=== PATIENT | female | born 1950 | race Caucasian/White ===

== ENCOUNTER → 2018-04-19 08:44 | Outpatient (CLI) | payer OTHER, MEDICARE, SELFPAY ==
[2018-04-19 10:54] LABS: Anion Gap 6 (5-15); BUN 29 mg/dL (7-18); BUN/Creat Ratio 32.4 RATIO (10-20); Calcium,Total 8.4 mg/dL (8.5-10.1); Chloride 110 mmol/L (98-107); Cholesterol 198 mg/dL (200); EST Glomerular Filtration Rate 67 mL/min (>60); Est Glom Filt Rate - Afr Amer 81 mL/min (>60); Glucose 126 mg/dL (74-106); High Density Lipoprotein 67 mg/dL; Potassium 4.3 mmol/L (3.5-5.1); Sodium Level 141 mmol/L (136-145); Thyroid Stim Hormone (TSH) 1.23 uIU/mL (0.358-3.74); Triglycerides 92 mg/dL; Very Low Density Lipoprotein 18 mg/dL (5-40)
== END ==
PROVIDERS: Family Provider Family Medicine; PCP Family Medicine; Visit Provider Family Medicine
DX: I10 Essential (primary) hypertension (principal); R73.03 Prediabetes; E03.9 Hypothyroidism, unspecified; E78.5 Hyperlipidemia, unspecified
CPT/HCPCS: 36415; 80048; 80061; 83036; 84443

== ENCOUNTER → 2018-09-09 12:52 | Outpatient (CLI) | payer OTHER, MEDICARE, SELFPAY ==
--- NOTE | 2018-09-09 12:58 | BI_ITS ---
MAMMOGRAPHY - BILATERAL SCREENING REASON FOR EXAM: Female, 68 years old. Routine annual screening examination. PERTINENT HISTORY: Aunt with breast cancer. TECHNIQUE: Digital bilateral breast nyasia (3D mammographic acquisition) in the CC and MLO projections. 2-D mediolateral oblique (MLO) and craniocaudad (CC) views of both breasts were obtained. CAD: Full Field Digital Mammography with Computer Added Detection was performed. COMPARISON: Comparison is made with prior study dated July 30, 2017 and April 27, 2016. FINDINGS: Breast Composition: There are scattered areas of fibroglandular density. There are no dominant masses or suspicious calcifications. There is a 5.6 mm x 6.1 mm well-defined nodule in the upper slightly lateral aspect of the left breast. Correlation with ultrasound is recommended for further evaluation. No other significant abnormalities are identified. BI/SCREENING MAMM (CAD), BILAT IMPRESSION: 5.6 mm x 6.1 mm well-defined nodule in the upper slightly lateral portion of the left breast. Correlation with ultrasound is recommended. ASSESSMENT CATEGORY: BIRADS Category 0: Incomplete. Need additional imaging evaluation. A letter regarding these results will be sent to the patient by the facility within 30 days. Approximately 10% of breast cancers are not detected by mammography. A normal mammogram should not delay biopsy of a clinically suspicious abnormality. [id number] Electronically Signed: Troy Serrano MD at 12:03 EDT Tel [phone], Service support ,
== END ==
PROVIDERS: Family Provider Family Medicine; PCP Family Medicine; Visit Provider Family Medicine
DX: Z12.31 Encounter for screening mammogram for malignant neoplasm of breast (principal)
CPT/HCPCS: 77063; 77067

== ENCOUNTER → 2018-09-11 14:58 | Outpatient (CLI) | payer OTHER, MEDICARE, SELFPAY ==
--- NOTE | 2018-09-11 15:00 | US_ITS ---
STUDY: ULTRASOUND BREAST - LEFT REASON FOR EXAM: Female, 68 years old. Abnormal screening mammogram. TECHNIQUE: Axial and longitudinal images of the LEFT breast were performed with a high resolution ultrasound transducer. COMPARISON: Comparison is made with prior mammogram dated September 09, 2018. FINDINGS: LEFT Breast: There is a 6 mm x 5 mm x 5 mm cyst at the 2:00 position breast at this time some nipple. Adjacent to this at the 2:00 position breast at 3 some is some nipple, there is a 4 mm x 4 mm x 3 mm cyst. US/Breast Limited Unilateral IMPRESSION: 2 small cysts are seen at the 2:00 position of the breast at 2 and 3 cm from the nipple. Routine mammographic follow-up is recommended. ASSESSMENT CATEGORY: BIRADS Category 2: Benign. A letter regarding these results will be sent to the patient by the facility within 30 days. Electronically Signed: Troy Serrano MD at 15:45 EDT Tel [phone], Service support ,
== END ==
PROVIDERS: Family Provider Family Medicine; PCP Family Medicine; Visit Provider Family Medicine
DX: R92.8 Other abnormal and inconclusive findings on diagnostic imaging of breast (principal)
CPT/HCPCS: 76642

== ENCOUNTER → 2018-12-05 14:49 | Outpatient (CLI) | payer OTHER, MEDICARE, SELFPAY ==
[2017-09-11 13:46] VITALS: BMI 31.4
[2018-12-05 16:02] LABS: Hemoglobin A1c 6.3 % (4.2-6.3)
[2018-12-05 16:05] LABS: Anion Gap 6 (5-15); BUN 18 mg/dL (7-18); Calcium,Total 8.8 mg/dL (8.5-10.1); Chloride 108 mmol/L (98-107); Cholesterol 279 mg/dL (200); Creatinine, Serum 0.95 mg/dL (0.55-1.02); EST Glomerular Filtration Rate 63 mL/min (>60); Est Glom Filt Rate - Afr Amer 76 mL/min (>60); Glucose 109 mg/dL (74-106); High Density Lipoprotein 75 mg/dL; Potassium 4.3 mmol/L (3.5-5.1); Sodium Level 143 mmol/L (136-145); Triglycerides 179 mg/dL; Very Low Density Lipoprotein 36 mg/dL (5-40)
[2018-12-09 12:10] LABS: Thyroid Stim Hormone (TSH) 2.32 uIU/mL (0.358-3.74)
[2018-12-09 12:13] LABS: Vitamin D,25 Hydroxy 20.2 ng/mL (29.95-100.01)
--- OUTSIDE RECORDS SUMMARY | 2019-02-09 10:10 | XMS RPT_ITS ---
:1950 Author Organization OHIP Care Team Providers Name Role Phone Subhash Rocha Attending Unavailable Subhash Rocha Primary Care Unavailable Subhash Rocha Attending Unavailable Subhash Rocha Primary Care Unavailable Subhash Rocha Attending Unavailable Subhash Rocha Primary Care Unavailable Subhash Rocha Attending Unavailable Subhash Rocha Primary Care Unavailable Daniel Calzada Attending Unavailable Daniel Calzada Attending Unavailable No Family Physician given Primary Care Unavailable Daniel Calzada Attending Unavailable Daniel Calzada Attending Unavailable No Family Physician given Primary Care Unavailable Daniel Calzada Attending Unavailable No Family Physician given Primary Care Unavailable PROBLEMS PROBLEMS DATE TYPE CONDITION / ATTENDING STATUS SOURCE CODE 02/13/2018 Admitting Unknown / Daniel Calzada Active [facility] Medical diagnosis UNK(Unknown) L [facility] Repository PROCEDURES PROCEDURES No Procedure Records FoundRESULTS RESULTS HEMOGLOBIN A1C Collected: 12/05/2018 Status: F Source: EDIS 2:53 PM [facility] REPOSITORY Order Comment: Order Date: 07/29/18 Order Info: 4548-4 - A1C TYPE CODE TESTS RESULT OUT OF RANGE REFERENCE UNITS LAB L501.9985 4.2-6.3 % Normal HGB A1C 6.3 Performed By: #### L501.9985, L500.2500, L500.4100 #### Edis [facility] [place], [address] BASIC METABOLIC Collected: 12/05/2018 Status: F Source: EDIS PROFILE (BMP) 2:53 PM [facility] REPOSITORY Order Comment: Order Date: 07/29/18 Order Info: 0667-1 - BMP Order Info: 57034-3 - LIPID ADD ON TSH TYPE CODE TESTS RESULT OUT OF RANGE REFERENCE UNITS LAB L501.0100 74-106 mg/dL High GLU 109 Result Comment: Fasting Glucose result from 100 to 125 mg/dL suggests IMPAIRED HOMEOSTASIS per A.D.A. criteria. Please note revised GLUCOSE reference range effective 2017. LAB L501.1000 7-18 mg/dL Normal BUN 18 LAB L501.1100 0.55-1.02 mg/dL Normal CREAT,SERUM 0.95 Result Comment: The validity of the calculated GFR AND GFRAA in patients over 70 years has not been determined. Clinical correlation is essential. LAB L501.1110 >60 mL/min Normal EST GFR 63 Result Comment: Non- GFR Calc LAB L501.1115 >60 mL/min Normal EST GFR - AA 76 Result Comment: GFR Calc LAB L501.1300 10-20 RATIO Normal BUN/CRE 19.0 LAB L501.2200 8.5-10.1 mg/dL CA Normal 8.8 LAB L501.5300 136-145 mmol/L NA Normal 143 LAB L501.5600 3.5-5.1 mmol/L K Normal 4.3 LAB L501.5900 98-107 mmol/L High CL 108 LAB L501.6100 21.0-32.0 mmol/L Normal CO2 29.0 LAB L501.6200 5-15 Normal GAP 6 Performed By: #### L501.9985, L500.2500, L500.4100 #### [facility] [address] [place], [address] LIPID PROFILE Collected: 12/05/2018 Status: F Source: EDIS 2:53 PM [facility] REPOSITORY Order Comment: Order Date: 07/29/18 Order Info: 0667-1 - BMP Order Info: 10814-2 - LIPID ADD ON TSH TYPE CODE TESTS RESULT OUT OF RANGE REFERENCE UNITS LAB L501.4900 200 mg/dL High CHOL 279 Result Comment: <200 mg/dL Desirable 200-240 mg/dL Borderline >240 mg/dL High Risk LAB L501.5000 mg/dL Normal TRIG 179 Result Comment: The drugs N-Acetylcysteine and Metamizole may falsely depress this assay. Serum Triglycerides Reference Interval Normal <150 mg/dL Borderline high 150 - 199 mg/dL High 200 - 499 mg/dL Very High > or = 500 mg/dL LAB L501.6400 mg/dL Normal HDL 75 Result Comment: The drugs N-Acetylcysteine and Metamizole may falsely depress this assay. Reference Range HDL <40 mg/dL Low HDL Cholesterol HDL >or= 60 mg/dL High HDL Cholesterol LAB L501.6500 0-130 mg/dL High LDL 168 LAB L501.6600 5-40 mg/dL Normal VLDL 36 Performed By: #### L501.9985, L500.2500, L500.4100 #### [facility] [address] [place], [address] THYROID STIM HORMONE Collected: 12/05/2018 Status: F Source: EDIS (TSH) 2:53 PM [facility] REPOSITORY Order Comment: Order Date: 07/29/18 Order Info: 0667-1 - BMP Order Info: 09466-1 - LIPID ADD ON TSH TYPE CODE TESTS RESULT OUT OF RANGE REFERENCE UNITS LAB L501.9520 0.358-3.74 uIU/mL Normal TSH 2.32 Performed By: #### L501.9520 #### [facility] [address] [place], [address] VITAMIN D,25 HYDROXY Collected: 12/05/2018 Status: F Source: EDIS 2:53 PM [facility] REPOSITORY Order Comment: ADD ON TYPE CODE TESTS RESULT OUT OF REFERENCE UNITS RANGE LAB L506.1000 29.95-100.01 ng/mL Low Vitamin D 20.2 25-OH Result Comment: Vitamin D 25(OH) Status Range Deficiency <20 ng/mL (50nmol/L) Insuffciency 20 - 30 ng/mL (50 - 75 nmol/L) Sufficiency 30 - 100 ng/mL (75 - 250 nmol/L) Toxicity >100 ng/mL (>250 nmol/L) Performed By: #### L506.1000 #### [facility] [address] [place], [address] BREAST LIMITED Observed: 09/11/2018 Status: F Source: [place] UNILATERAL 3:00 PM [facility] REPOSITORY [facility] Services [address] [place] [address] Breast Limited Unilateral MR#: [id number] Acct: [id number] Name: KARIN CAN Rep #: [id number] : 1950 F 68 From: Troy Serrano MD PCP: Subhash Rocha MD Status: REG CLI Study: Breast Limited Unilateral Date of Exam: 09/11/18 Exam# [id number] Ordering Dr: Subhash Rocha MD STUDY: ULTRASOUND BREAST - LEFT REASON FOR EXAM: Female, 68 years old. Abnormal screening mammogram. TECHNIQUE: Axial and longitudinal images of the LEFT breast were performed with a high resolution ultrasound transducer. COMPARISON: Comparison is made with prior mammogram dated September 09, 2018. FINDINGS: LEFT Breast: There is a 6 mm x 5 mm x 5 mm cyst at the 2:00 position breast at this time some nipple. Adjacent to this at the 2:00 position breast at 3 some is some nipple, there is a 4 mm x 4 mm x 3 mm cyst. US/Breast Limited Unilateral IMPRESSION: 2 small cysts are seen at the 2:00 position of the breast at 2 and 3 cm from the nipple. Routine mammographic follow-up is recommended. ASSESSMENT CATEGORY: BIRADS Category 2: Benign. A letter regarding these results will be sent to the patient by the facility within 30 days. Electronically Signed: Troy Serrano MD at 15:45 EDT Tel [phone], Service support , CC: Subhash Rocha MD Deputy Brand Inspector: Signed SCREENING MAMM (CAD), Observed: 09/09/2018 Status: F Source: [place] BILAT 12:58 PM [facility] REPOSITORY [facility] Imaging Services [address] [place] [address] SCREENING MAMM (CAD), BILAT MR#: [id number] Acct: [id number] Name: KARIN CAN Rep #: [id number] : 1950 F 68 From: Troy Serrano MD PCP: Subhash Rocha MD Status: REG CLI Study: SCREENING MAMM (CAD), BILAT Date of Exam: 09/09/18 Exam# [id number] Ordering Dr: Subhash Rocha MD MAMMOGRAPHY - BILATERAL SCREENING REASON FOR EXAM: Female, 68 years old. Routine annual screening examination. PERTINENT HISTORY: Aunt with breast cancer. TECHNIQUE: Digital bilateral breast nyasia (3D mammographic acquisition) in the CC and MLO projections. 2-D mediolateral oblique (MLO) and craniocaudad (CC) views of both breasts were obtained. CAD: Full Field Digital Mammography with Computer Added Detection was performed. COMPARISON: Comparison is made with prior study dated July 30, 2017 and April 27, 2016. FINDINGS: Breast Composition: There are scattered areas of fibroglandular density. There are no dominant masses or suspicious calcifications. There is a 5.6 mm x 6.1 mm well-defined nodule in the upper slightly lateral aspect of the left breast. Correlation with ultrasound is recommended for further evaluation. No other significant abnormalities are identified. BI/SCREENING MAMM (CAD), BILAT IMPRESSION: 5.6 mm x 6.1 mm well-defined nodule in the upper slightly lateral portion of the left breast. Correlation with ultrasound is recommended. ASSESSMENT CATEGORY: BIRADS Category 0: Incomplete. Need additional imaging evaluation. A letter regarding these results will be sent to the patient by the facility within 30 days. Approximately 10% of breast cancers are not detected by mammography. A normal mammogram should not delay biopsy of a clinically suspicious abnormality. [id number] Electronically Signed: Troy Serrano MD at 12:03 EDT Tel [phone], Service support , CC: Subhash Rocha MD Deputy Brand Inspector: Signed BASIC METABOLIC Collected: 04/19/2018 Status: F Source: EDIS PROFILE (BMP) 8:50 AM [facility] REPOSITORY Order Comment: Order Date: 12/24/17 Order Info: 0667-1 - BMP Order Info: 60860-6 - LIPID Order Info: 3016-3 - TSH TYPE CODE TESTS RESULT OUT OF RANGE REFERENCE UNITS LAB L501.0100 74-106 mg/dL High GLU 126 Result Comment: Fasting Glucose result greater than or equal to 126 mg/dL suggests DIABETES MELLITUS per A.D.A. criteria. Please note revised GLUCOSE reference range effective 2017. LAB L501.1000 7-18 mg/dL High BUN 29 LAB L501.1100 0.55-1.02 mg/dL Normal CREAT,SERUM 0.90 Result Comment: The validity of the calculated GFR AND GFRAA in patients over 70 years has not been determined. Clinical correlation is essential. LAB L501.1110 >60 mL/min Normal EST GFR 67 Result Comment: Non- GFR Calc LAB L501.1115 >60 mL/min Normal EST GFR - AA 81 Result Comment: GFR Calc LAB L501.1300 10-20 RATIO High BUN/CRE 32.4 LAB L501.2200 8.5-10.1 mg/dL Low CA 8.4 LAB L501.5300 136-145 mmol/L NA Normal 141 LAB L501.5600 3.5-5.1 mmol/L K Normal 4.3 LAB L501.5900 98-107 mmol/L High CL 110 LAB L501.6100 21.0-32.0 mmol/L Normal CO2 25.0 LAB L501.6200 5-15 Normal GAP 6 Performed By: #### L500.2500, L500.4100, L501.9520, L501.9985 #### [facility] [address] [place], [place], [address] LIPID PROFILE Collected: 04/19/2018 Status: F Source: EDIS 8:50 AM [facility] REPOSITORY Order Comment: Order Date: 12/24/17 Order Info: 0667-1 - BMP Order Info: 35920-5 - LIPID Order Info: 3016-3 - TSH TYPE CODE TESTS RESULT OUT OF RANGE REFERENCE UNITS LAB L501.4900 200 mg/dL Normal CHOL 198 Result Comment: <200 mg/dL Desirable 200-240 mg/dL Borderline >240 mg/dL High Risk LAB L501.5000 mg/dL Normal TRIG 92 Result Comment: The drugs N-Acetylcysteine and Metamizole may falsely depress this assay. Serum Triglycerides Reference Interval Normal <150 mg/dL Borderline high 150 - 199 mg/dL High 200 - 499 mg/dL Very High > or = 500 mg/dL LAB L501.6400 mg/dL Normal HDL 67 Result Comment: The drugs N-Acetylcysteine and Metamizole may falsely depress this assay. Reference Range HDL <40 mg/dL Low HDL Cholesterol HDL >or= 60 mg/dL High HDL Cholesterol LAB L501.6500 0-130 mg/dL Normal LDL 113 LAB L501.6600 5-40 mg/dL Normal VLDL 18 Performed By: #### L500.2500, L500.4100, L501.9520, L501.9985 #### [facility] [address] [place], [place], [address] THYROID STIM HORMONE Collected: 04/19/2018 Status: F Source: EDIS (TSH) 8:50 AM [facility] REPOSITORY Order Comment: Order Date: 12/24/17 Order Info: 0667-1 - BMP Order Info: 07345-4 - LIPID Order Info: 3016-3 - TSH TYPE CODE TESTS RESULT OUT OF RANGE REFERENCE UNITS LAB L501.9520 0.358-3.74 uIU/mL Normal TSH 1.23 Performed By: #### L500.2500, L500.4100, L501.9520, L501.9985 #### [facility] [address] [place], [address] HEMOGLOBIN A1C Collected: 04/19/2018 Status: F Source: EDIS 8:50 AM [facility] REPOSITORY Order Comment: Order Date: 12/24/17 Order Info: 4548-4 - A1C TYPE CODE TESTS RESULT OUT OF RANGE REFERENCE UNITS LAB L501.9985 4.2-6.3 % Normal HGB A1C 6.0 Performed By: #### L500.2500, L500.4100, L501.9520, L501.9985 #### [facility] [address] [place], [address] ALLERGIES ALLERGIES DATE TYPE / CODE NAME / CODE REACTION SEVERITY SOURCE 09/11/2017 Drug No Known Unknown [facility] Allergy/4160 Allergies/F00 [facility] 34988(SNOMED [id number](RXNOR Repository CT) M) ENCOUNTERS ENCOUNTERS ADMIT/DISCHARGE ACCOUNT ADMITTING ENCOUNTER LOCATION SOURCE NUMBER CLASS 12/12/[id number] [facility] 0 [facility] [place] g:H.PM Repository 12/05/2018 [id number] Ambulatory [place] 3 [facility] ing:MFPLAB Repository 10/16/[id number] [place] g:H.PM Repository 09/11/2018 [id number] Ambulatory [place] 8 [facility] ing:OPUS Repository 09/09/2018 [id number] [facility] ing:OPBI Repository 08/16/[id number] [facility] [place] g:H.PM Repository 05/16/2018 [id number] Ambulatory [facility] [place] g:H.PM Repository 04/19/2018 [id number] Ambulatory [place] 9 [facility] ing:MFPLAB Repository 02/13/2018 [id number] Ambulatory [facility] 0 [facility] g:H.PM Repository PAYERS PAYERS ENCOUNTER GUARANTOR PAYER SUBSCRIBER SOURCE 12/12/2018 LYLE Primary KARIN PETTORINIUNK [facility] Medical [id number] [facility] Repository [place], [place] Number: [id number]: 330 [id number] [phone] () Date:[address]IKBZBTFAFLN, [place] [address]VD: 12/12/2018 Secondary [facility]IN [facility] Medical [facility] Number: Repository [id number] Date:[address]WCVF CODE [id number], [place] [address]VI: 12/05/2018 KARIN M Primary JESÚS C [place] [id number] Insurance:[facility] PETTORINIDOB: [facility] Number: [id number], [place] [id number] Repository [address]Idi: Date:7370-19-47[address]VNAENUUDCL[address], [place] (JS) [address]DT: 12/05/2018 Secondary KARIN M Edis Insurance:MEDICARE PETTORINIDOB: [facility] PART A [facility] [id number] Hospital Number: Repository [id number] Date:2018-12-05 12/05/2018 Tertiary NOT GIVENUNK [place] Insurance:SELF PAY [facility] Number: Effective Repository Date:2018-12-05 10/16/2018 LYLE Primary KARIN PETTORINIUNK [facility] Medical [id number] Insurance:[facility] INDEMNITYPolicy Repository [place], [place] Number: [address]Omc: 330 [id number] [phone] () Date:[address]UFRKUDEUVYHDEMARIO MULLEN [address]EG: 10/16/2018 Secondary [facility] Medical Insurance:MEDICAREPol [facility] Number: Repository [id number] Date:[address]JNT[address] CODE [id number], [place] [address]HO: 09/11/2018 KARIN [place] Primary JESÚS C Edis [id number] Insurance:CIGNAPolicy PETTORINIDOB: [facility] Number: [id number], [place] [id number] Repository [address]Lnc: Date:3651-69-61IS [address]FNZACMB[address]DCSDEMAR[address] () [address]GI: 09/11/2018 Secondary KARIN [place] Insurance:MEDICARE PETTORINIDOB: Community PART A [facility] [id number] Hospital Number: Repository [id number] Date:2018-09-10 09/11/2018 Tertiary NOT GIVENUNK Edis Insurance:SELF PAY [facility] Number: Effective Repository Date:2018-09-10 09/09/2018 KARIN M Primary JESÚS C [place] [id number] Insurance:CIGNAPolicy PETTORINIDOB: [facility] Number: [id number], [place] [id number] Repository [address]Adk: Date:2886-33-69[address]ULWLHACYMQNDEMAR[address] () [address]GP: 09/09/2018 Secondary KARIN M Edis Insurance:MEDICARE PETTORINIDOB: Community PART A [facility] [id number] Hospital Number: Repository [id number] Date:2018-07-31 09/09/2018 Tertiary NOT GIVENUNK Edis Insurance:SELF PAY [facility] Number: Effective Repository Date:2018-07-31 08/16/2018 LYLE [facility] [id number] Insurance:[facility] Repository [place], [place] Number: [id number]: (330 [id number] [phone] (HP) Date:[address]KEORJYZKYOS, [place] [address]TJ: 08/16/2018 Secondary [facility] Medical Insurance:[facility] Number: Repository [id number] Date:[address]UOJY CODE [id number], [place] [address]EY: 05/16/2018 LYLE Primary KARIN [facility] Medical [id number] Insurance:[facility] Repository [place], [place] Number: [id number]: 330 [id number] [phone] (HP) Date:[address]BPFPGUWCAKP, [place] [address]GQ: 05/16/2018 Secondary [facility] Medical Insurance:MEDICAREPol [facility] icy Number: Repository [id number] Date:[address]XGAP CODE [id number], [place] [address]AH: 04/19/2018 Karin M Primary Jesús C Edis [id number] Insurance:[facility] PetChildren[facility] Hospital [facility] OrleansB: [facility] Number: [id number], [place] [id number] Repository [address]Psw: Date:4907-73-20[address]JZLALFP[address], [place] (HP) [address]RB: 04/19/2018 Secondary Karin M [place] Insurance:MEDICARE PettoriniDOB: Community PART A BPolicy [id number] Hospital Number: Repository [id number] Date:2018-04-19 04/19/2018 Tertiary NOT GIVENUNK E[place] Insurance:SELF PAY [facility] Number: Effective Repository Date:2018-04-19 02/13/2018 LYLE Primary [facility] Medical [id number] Insurance:[facility] INDEMNITYPolicy Repository [place] Number: [id number]: (997) [id number] [phone] () Date:[address]PJYOHLKKZMG, [place] [address]CF: 02/13/2018 Secondary [facility] Medical Insurance:[facility]ARE[facility] icy Number: Repository [id number] Date:[address]JQWX CODE [id number], [place] [address]RT:
== END ==
PROVIDERS: Family Provider Family Medicine; PCP Family Medicine; Visit Provider Family Medicine
DX: I10 Essential (primary) hypertension (principal); E78.5 Hyperlipidemia, unspecified; R73.03 Prediabetes
CPT/HCPCS: 36415; 80048; 80061; 82306; 83036; 84443

== ENCOUNTER → 2019-04-25 15:35 | Outpatient (CLI) | payer OTHER, MEDICARE, SELFPAY ==
[2017-09-11 13:46] VITALS: BMI 31.4
== END ==
PROVIDERS: Family Provider Family Medicine; PCP Family Medicine; Referring Provider Family Medicine; Visit Provider Family Medicine
DX: N39.0 Urinary tract infection, site not specified (principal)
CPT/HCPCS: 87077; 87086; 87088; 87186

== ENCOUNTER → 2019-07-08 09:27 | Outpatient (CLI) | payer MEDICARE, OTHER, SELFPAY ==
[2019-07-08 10:21] LABS: Hematocrit 38.8 % (37-47); Hemoglobin 12.3 g/dL (12.0-15.0); Mean Corp Hgb Conc 31.7 g/dL (32-36); Mean Corpuscular Hgb 30.2 pg (27.0-32.0); Mean Corpuscular Volume 95.3 fL (81-99); Mean Platelet Vol. 10.2 fl (6.2-12.0); Platelet Count 243 K/mm3 (150-450); RBC Distribution Width CV 13.7 % (11.6-14.6); RBC Distribution Width SD 48.1 fl (35.1-43.9); Red Blood Count 4.07 M/mm3 (4.2-5.4); White Blood Count 4.7 K/mm3 (4.4-11.0)
[2019-07-08 10:49] LABS: AST(SGOT) 16 U/L (15-37); Alanine Aminotransfer ALT/SGPT 16 U/L (13-56); Albumin, Serum 3.3 g/dL (3.2-5.0); Alkaline Phosphatase 66 U/L (45-117); Anion Gap 4 (5-15); BUN 16 mg/dL (7-18); BUN/Creat Ratio 20.5 RATIO (10-20); Calcium,Total 8.4 mg/dL (8.5-10.1); Chloride 112 mmol/L (98-107); Cholesterol 194 mg/dL (200); Creatinine, Serum 0.78 mg/dL (0.55-1.02); EST Glomerular Filtration Rate 78 mL/min (>60); Est Glom Filt Rate - Afr Amer 95 mL/min (>60); Globulin 3.4 g/dL (2.2-4.2); Glucose 103 mg/dL (74-106); High Density Lipoprotein 72 mg/dL; Protein, Total 6.7 g/dL (6.4-8.2); Sodium Level 144 mmol/L (136-145); Triglycerides 82 mg/dL; Very Low Density Lipoprotein 16 mg/dL (5-40)
[2019-07-08 10:54] LABS: Vitamin D,25 Hydroxy 27.9 ng/mL (29.95-100.01)
== END ==
PROVIDERS: Family Provider Family Medicine; PCP Family Medicine; Referring Provider Family Medicine; Visit Provider Family Medicine
DX: I10 Essential (primary) hypertension (principal); E78.5 Hyperlipidemia, unspecified; E55.9 Vitamin D deficiency, unspecified
CPT/HCPCS: 36415; 80053; 80061; 82306; 85027

== ENCOUNTER → 2019-09-09 13:44 | Outpatient (CLI) | payer MEDICARE, OTHER, SELFPAY ==
[2019-09-09 16:09] LABS: Thyroid Stim Hormone (TSH) 0.45 uIU/mL (0.358-3.74)
== END ==
PROVIDERS: Family Provider Family Medicine; PCP Family Medicine; Referring Provider Family Medicine; Visit Provider Family Medicine
DX: E03.9 Hypothyroidism, unspecified (principal)
CPT/HCPCS: 36415; 84443

== ENCOUNTER → 2019-11-06 13:34 | Outpatient (CLI) | payer MEDICARE, OTHER, SELFPAY ==
[2017-09-11 13:46] VITALS: BMI 31.4
--- NOTE | 2019-11-06 13:37 | BI_ITS ---
MAMMOGRAPHY - BILATERAL SCREENING REASON FOR EXAM: Female, 69 years old. Routine annual screening examination. PERTINENT HISTORY: Aunt with breast cancer. TECHNIQUE: Digital bilateral breast fred (3D mammographic acquisition) in the CC and MLO projections. 2-D mediolateral oblique (MLO) and craniocaudad (CC) views of both breasts were obtained. CAD: Full Field Digital Mammography with Computer Added Detection was performed. COMPARISON: Comparison is made with prior examination dated September 09, 2018 and July 30, 2007. FINDINGS: Breast Composition: There are scattered areas of fibroglandular density. There are no dominant masses or suspicious calcifications. Stable 5.5 mm nodule in the upper lateral aspect of the left breast. Prior ultrasound demonstrated to be a small cyst. No other significant abnormalities are identified. There has been no significant change since the prior study. BI/SCREEN MAMM (CAD) W/FRED BILAT IMPRESSION: Stable bilateral screening mammogram. Yearly follow-up mammogram recommended. (A) ASSESSMENT CATEGORY: BIRADS Category 2: Benign. A letter regarding these results will be sent to the patient by the facility within 30 days. Approximately 10% of breast cancers are not detected by mammography. A normal mammogram should not delay biopsy of a clinically suspicious abnormality. [id number] Electronically Signed: Troy Serrano, at 15:14 EST , Service support ,
== END ==
PROVIDERS: Family Provider Family Medicine; PCP Family Medicine; Referring Provider Family Medicine; Visit Provider Family Medicine
DX: Z12.31 Encounter for screening mammogram for malignant neoplasm of breast (principal)
CPT/HCPCS: 77063; 77067

== ENCOUNTER → 2020-06-21 08:48 | Outpatient (CLI) | payer MEDICARE, OTHER, SELFPAY ==
[2019-12-11 11:10] VITALS: BMI 31.4
[2020-06-21 10:37] LABS: AST(SGOT) 11 U/L (15-37); Alanine Aminotransfer ALT/SGPT 17 U/L (13-56); Albumin, Serum 3.5 g/dL (3.2-5.0); Alkaline Phosphatase 75 U/L (45-117); Anion Gap 4 (5-15); BUN 18 mg/dL (7-18); BUN/Creat Ratio 21.5 RATIO (10-20); Calcium,Total 8.7 mg/dL (8.5-10.1); Chloride 110 mmol/L (98-107); Cholesterol 194 mg/dL (200); Creatinine, Serum 0.84 mg/dL (0.55-1.02); EST Glomerular Filtration Rate 72 mL/min (>60); Est Glom Filt Rate - Afr Amer 87 mL/min (>60); Globulin 3.4 g/dL (2.2-4.2); Glucose 123 mg/dL (74-106); High Density Lipoprotein 79 mg/dL; Potassium 4.6 mmol/L (3.5-5.1); Protein, Total 6.9 g/dL (6.4-8.2); Sodium Level 143 mmol/L (136-145); Triglycerides 72 mg/dL; Very Low Density Lipoprotein 14 mg/dL (5-40)
[2020-06-21 14:28] LABS: Thyroid Stim Hormone (TSH) 0.01 uIU/mL (0.358-3.74)
== END ==
PROVIDERS: PCP Family Medicine; Referring Provider Family Medicine; Visit Provider Family Medicine
DX: I10 Essential (primary) hypertension (principal); E03.9 Hypothyroidism, unspecified; E78.5 Hyperlipidemia, unspecified
CPT/HCPCS: 36415; 80053; 80061; 84443

== ENCOUNTER → 2020-09-24 10:14 | Outpatient (CLI) | payer MEDICARE, OTHER, SELFPAY ==
[2019-12-11 11:10] VITALS: BMI 31.4
[2020-09-24 12:53] LABS: Cholesterol 191 mg/dL (200); High Density Lipoprotein 79 mg/dL; Thyroid Stim Hormone (TSH) 0.02 uIU/mL (0.358-3.74); Triglycerides 59 mg/dL; Very Low Density Lipoprotein 12 mg/dL (5-40)
== END ==
PROVIDERS: PCP Family Medicine; Referring Provider Family Medicine; Visit Provider Family Medicine
DX: E78.5 Hyperlipidemia, unspecified (principal); E03.9 Hypothyroidism, unspecified
CPT/HCPCS: 36415; 80061; 84443

== ENCOUNTER → 2020-11-08 08:33 | Outpatient (CLI) | payer MEDICARE, OTHER, SELFPAY ==
[2019-12-11 11:10] VITALS: BMI 31.4
--- NOTE | 2020-11-08 08:37 | BI_ITS ---
MAMMOGRAPHY - BILATERAL SCREENING REASON FOR EXAM: Female, 70 years old. Routine annual screening examination. PERTINENT HISTORY: Aunt with breast cancer. Remote right stereotactic breast biopsy. TECHNIQUE: Digital bilateral breast fred (3D mammographic acquisition) in the CC and MLO projections. 2-D mediolateral oblique (MLO) and craniocaudad (CC) views of both breasts were obtained. CAD: Full Field Digital Mammography with Computer Added Detection was performed. COMPARISON: Comparison is made with prior study dated 11/06/2019 and 09/09/2018. FINDINGS: Breast Composition: There are scattered areas of fibroglandular density. There are no dominant masses or suspicious calcifications. Stable small benign appearing bilateral axillary lymph nodes. No other significant abnormalities are identified. There has been no significant change since the prior study. BI/SCREEN MAMM (CAD) W/FRED BILAT IMPRESSION: Stable bilateral screening mammogram. Yearly follow-up mammogram recommended. (A) ASSESSMENT CATEGORY: BIRADS Category 2: Benign. A letter regarding these results will be sent to the patient by the facility within 30 days. Approximately 10% of breast cancers are not detected by mammography. A normal mammogram should not delay biopsy of a clinically suspicious abnormality. [id number] Electronically Signed: Troy Serrano, at 9:38 EST , Service support ,
== END ==
PROVIDERS: PCP Family Medicine; Referring Provider Family Medicine; Visit Provider Family Medicine
DX: Z12.31 Encounter for screening mammogram for malignant neoplasm of breast (principal); Z80.3 Family history of malignant neoplasm of breast
CPT/HCPCS: 77063; 77067

== ENCOUNTER → 2020-12-21 12:02 | Outpatient (CLI) | payer MEDICARE, OTHER, SELFPAY ==
[2019-12-11 11:10] VITALS: BMI 31.4
[2020-12-21 15:41] LABS: Thyroid Stim Hormone (TSH) 0.08 uIU/mL (0.358-3.74)
== END ==
PROVIDERS: PCP Family Medicine; Referring Provider Family Medicine; Visit Provider Family Medicine
DX: E03.9 Hypothyroidism, unspecified (principal)
CPT/HCPCS: 36415; 84443

== ENCOUNTER → 2021-03-07 14:03 | Outpatient (CLI) | payer MEDICARE, OTHER, SELFPAY ==
[2019-12-11 11:10] VITALS: BMI 31.4
[2021-03-07 16:24] LABS: Thyroid Stim Hormone (TSH) 1.13 uIU/mL (0.358-3.74)
== END ==
PROVIDERS: PCP Family Medicine; Visit Provider Family Medicine
DX: E03.9 Hypothyroidism, unspecified (principal)
CPT/HCPCS: 36415; 84443

== ENCOUNTER → 2021-03-17 15:13 | Outpatient (CLI) | payer MEDICARE, OTHER, SELFPAY ==
[2019-12-11 11:10] VITALS: BMI 31.4
--- NOTE | 2021-03-17 11:30 | LES_PTH ---
PATIENT: KAIRN CAN LOC: [facility] U#:[id number] AGE/SX: 75/F ROOM: RE03/17/[address]: Dr. Fermín Salinas MD : 1950 BED: DIS: SPEC #: [id number] RECD: 03/17/21 15:00 STATUS: DINA SERRANODavid #: [id number] REMINGTON: 03/17/21 11:[address]: Fermín Salinas DEPT: SURGICAL PATHOLOGY RECD BY: Tiffanie Ramirez ENTERED: 03/18/21 09:02 SP TYPE: Lesion OTHR DR: Dr. Subhash Yan MD Tissues: Skin of eyelid, NOS Procedures: Surgery Specimen Level IV HEADER OPERATION: Excisional biopsy right lower lid PRE-OP DIAGNOSIS: Right lower eyelid lesion TISSUE SUBMITTED: Right lower eyelid lesion MICROSCOPIC DIAGNOSIS Right lower eyelid lesion, excisional biopsy: A piece of skin with mild chronic inflammation and focal changes suggestive of lentigo. Negative for malignancy. AUREA:marilia 03/21/2021 COMMENT Clinical correlation is necessary. Case has been reviewed in consultation with Dr. Garcia who concurs with the above diagnosis. IDC:AM MICROSCOPIC DESCRIPTION Slides are reviewed. GROSS DESCRIPTION Received in fixative is one container labeled with the patient's name and designated right lower eyelid lesion. The specimen consists of a piece of light mares-brown skin measuring 0.3 x 0.2 x 0.1 cm. The entire specimen is submitted in one cassette. / AUREA:marilia 03/18/21 TC:Jose Daniel
== END ==
PROVIDERS: PCP Family Medicine; Referring Provider Ophthalmology; Visit Provider Ophthalmology
DX: H02.9 Unspecified disorder of eyelid (principal)
CPT/HCPCS: 88305

== ENCOUNTER → 2021-03-31 09:47 | Outpatient (CLI) | payer MEDICARE, OTHER, SELFPAY ==
[2019-12-11 11:10] VITALS: BMI 31.4
[2021-03-31 12:01] LABS: Absolute Lymphocyte Count 1.56 X10^3/uL (0.83-4.51); Absolute Neutrophil Count 2.1 X10^3/uL (2.0-7.7); Basophil# 0.03 X10^3/uL; Basophil% 0.7 % (0-1); Eosinophil# 0.14 X10^3/uL; Eosinophils% 3.3 % (0-5); Hemoglobin 12.2 g/dL (12.0-15.0); Lymphocyte # 1.56 X10^3/ul (0.83-4.51); Lymphocyte % 37.1 % (19-41); Mean Corp Hgb Conc 31.3 g/dL (32-36); Mean Corpuscular Volume 95.8 fL (81-99); Mean Platelet Vol. 10.7 fl (6.2-12.0); Monocyte# 0.33 X10^3/uL; Monocyte% 7.8 % (0-10); NRBC Flagged by Analyzer 0 % (0-5); Neutrophil # 2.14 X10^3/uL (2.7-7.7); Neutrophil % 50.9 % (47-70); Platelet Count 281 K/mm3 (150-450); RBC Distribution Width CV 13.7 % (11.6-14.6); RBC Distribution Width SD 48.7 fl (35.1-43.9); Red Blood Count 4.07 M/mm3 (4.2-5.4); White Blood Count 4.2 K/mm3 (4.4-11.0)
[2021-03-31 12:17] LABS: AST(SGOT) 12 U/L (15-37); Alanine Aminotransfer ALT/SGPT 17 U/L (13-56); Albumin, Serum 3.4 g/dL (3.2-5.0); Alkaline Phosphatase 77 U/L (45-117); Anion Gap 3 (5-15); BUN 19 mg/dL (7-18); Calcium,Total 8.9 mg/dL (8.5-10.1); Chloride 112 mmol/L (98-107); Cholesterol 202 mg/dL (200); Creatinine, Serum 0.86 mg/dL (0.55-1.02); EST Glomerular Filtration Rate 69 mL/min (>60); Est Glom Filt Rate - Afr Amer 84 mL/min (>60); Globulin 3.5 g/dL (2.2-4.2); Glucose 105 mg/dL (74-106); High Density Lipoprotein 84 mg/dL; Protein, Total 6.9 g/dL (6.4-8.2); Sodium Level 142 mmol/L (136-145); Triglycerides 52 mg/dL; Very Low Density Lipoprotein 10 mg/dL (5-40)
[2021-03-31 12:38] LABS: Hemoglobin A1c 5.7 % (3.8-5.6)
== END ==
PROVIDERS: PCP Family Medicine; Referring Provider Family Medicine; Visit Provider Family Medicine
DX: I10 Essential (primary) hypertension (principal); R73.03 Prediabetes
CPT/HCPCS: 36415; 80053; 80061; 83036; 85025

== ENCOUNTER → 2021-05-03 13:52 | Outpatient (CLI) | payer MEDICARE, OTHER, SELFPAY ==
[2019-12-11 11:10] VITALS: BMI 31.4
--- NOTE | 2021-05-03 13:58 | RAD_ITS ---
INDICATION: CHRONIC COUGH EXAMINATION/TECHNIQUE: X-RAY - XR Chest 2 Views COMPARISON: None. FINDINGS: The lungs are clear. The cardiomediastinal silhouette is unremarkable. No pleural effusion or pneumothorax. Degenerative changes of the thoracic spine. RAD/Chest PA and Lateral IMPRESSION: No acute radiographic abnormalities. Electronically Signed: Prem Mercado MD at 20:58 EDT Tel , Service support ,
== END ==
PROVIDERS: PCP Family Medicine; Referring Provider Family Medicine; Visit Provider Family Medicine
DX: R05 Cough (principal)
CPT/HCPCS: 71046

== ENCOUNTER → 2021-08-11 08:14 | Outpatient (CLI) | payer MEDICARE, BC, SELFPAY ==
--- NOTE | 2021-08-11 08:18 | RAD_ITS ---
STUDY: X-RAY - ESOPHAGUS (BARIUM SWALLOW) WITH FLUOROSCOPY REASON FOR EXAM: Female, 71 years old. DYSPHAGIa TECHNIQUE: 22 view(s) of the esophagus were obtained following swallowing of barium. FLUOROSCOPY TIME (if supplied): (29 seconds) minutes/seconds COMPARISON: None. FINDINGS: There is no demonstrated esophageal foreign body. There is no demonstrated stricture or mucosal abnormality. Normal gastroesophageal junction, without a demonstrated hiatal hernia. The patient ingested a 12 mm tablet of barium without any difficulty. There is atherosclerotic calcification of the aortic arch with tortuosity of the descending aorta. Normal visualized pulmonary parenchyma. There are diffuse degenerative changes of the visualized thoracic spine. RAD/Esophagus Dual Contrast IMPRESSION: Normal plain film x-ray examination (barium swallow) of the esophagus. Electronically Signed: Troy Serrano MD at 9:25 EDT , Service support ,
== END ==
PROVIDERS: PCP Family Medicine; Referring Provider Family Medicine; Visit Provider Family Medicine
DX: R13.10 Dysphagia, unspecified (principal)
CPT/HCPCS: 74221

== ENCOUNTER → 2021-08-17 11:28 | Outpatient (CLI) | payer MEDICARE, BC, SELFPAY ==
[2021-08-17 13:12] LABS: T4 Total, Thyroxin 9.3 ug/dL (4.8-13.9)
== END ==
PROVIDERS: Family Medicine; PCP Family Medicine; Referring Provider Family Medicine; Visit Provider Family Medicine
DX: E03.9 Hypothyroidism, unspecified (principal)
CPT/HCPCS: 36415; 84436; 84443

== ENCOUNTER → 2021-11-16 08:46 | Outpatient (CLI) | payer MEDICARE, BC, SELFPAY ==
--- NOTE | 2021-11-16 08:48 | BI_ITS ---
MAMMOGRAPHY - BILATERAL SCREENING 3-D TOMOSYNTHESIS REASON FOR EXAM: Female, 71 years old. SCREENING PERTINENT HISTORY: No significant family history. TECHNIQUE: 2-D mammograms and 3-D Tomosynthesis of the breast (s) were performed. CAD was performed. COMPARISON: 11/08/2020 FINDINGS: The breast composition is composed of scattered fibroglandular density. Scattered benign calcifications are seen. No dense spiculated masses or suspicious microcalcifications are identified. No architectural distortion is identified. There is no skin thickening or retraction. There has been no significant change since the prior study. BI/SCRN MAMM (CAD)W/FRED BILAT IMPRESSION: No mammographic signs of malignancy. Routine yearly mammograms recommended. ASSESSMENT CATEGORY: BIRADS Category 1: Negative. A letter regarding these results will be sent to the patient by the facility within 30 days. FOLLOW UP RECOMMENDATION: Yearly follow up mammogram recommended. (A) Approximately 10% of breast cancers are not detected by mammography. A normal mammogram should not delay biopsy of a clinically suspicious abnormality. Electronically Signed: Gaudencio Jacques MD at 10:19 EST Tel , Service support ,
--- NOTE | 2021-11-16 08:50 | BD_ITS ---
STUDY: DUAL ENERGY X-RAY ABSORPTIOMETRY / DXA REASON FOR EXAM: Female, 71 years old. Z780. Patient is postmenopausal. TECHNIQUE: Bone Mineral Density (BMD) measurements of lumbar spine and bilateral hips were obtained. COMPARISON: Comparison is made with prior study 08/29/2012. FINDINGS: Lumbar Spine (L1-L4): g/cm2 (1.005) / T-score (0.2) / Z-score (2.2) Findings are suggestive of normal bone density with a low fracture risk. Left Femur Total: g/cm2 (0.782) / T-score (-1.3) / Z-score (0.2) Left Femoral Neck: g/cm2 (0.644) / T-score (-1.8) / Z-score (-0.1) Right Femur Total: g/cm2 (0.715) / T-score (-1.9) / Z-score (-0.4) Right Femoral Neck: g/cm2 (0.565) / T-score (-2.6) / Z-score (-0.8) The T-Scores on the most recent prior examination were: Lumbar Spine (L1-L4): There has been improvement of bone density since the previous examination. Left Femur Total: which represents a worsening of 2%. Right Femur Total: which represents an improvement of 0.7%. BD/Dexa Bone Density Study IMPRESSION: The patient is considered osteopenic as outlined below according to World Jorge Organization (WHO) criteria with a high fracture risk. There has been worsening of bone density since the previous examination. Reference Information: The T-score is the number of standard deviations above or below the standard which is normal for young adults at their peak bone mineral density. The World Health Organization (WHO) interprets the T-scores as follows: Above -1 Normal bone density Between -1 and -2.5 Osteopenia Equal to / or below -2.5 Osteoporosis As a practical clinical guideline, osteopenia may be graded as follows: Mild -1 through -1.5 Moderate -1.6 through -2.0 Severe -2.1 through -2.4 The Z-score is the number of standard deviations above or below age-matched controls. A Z-score of less than -1.5 would be considered abnormal. References: 1. NIH Osteoporosis and Related Bone Diseases www osteo.org 2. International Society for Clinical Densitometry www iscd.org 3. National Osteoporosis Foundation www nof.org Electronically Signed: Troy Serrano MD at 15:29 EST , Service support ,
== END ==
PROVIDERS: PCP Family Medicine; Referring Provider Family Medicine; Visit Provider Family Medicine
DX: Z12.31 Encounter for screening mammogram for malignant neoplasm of breast (principal); Z78.0 Asymptomatic menopausal state; M85.80 Other specified disorders of bone density and structure, unspecified site
CPT/HCPCS: 77063; 77067; 77080

== ENCOUNTER 2022-02-09 08:16 | Outpatient (CLI) | payer MEDICARE, BC, SELFPAY ==
[2022-02-09 10:48] LABS: Vitamin D,25 Hydroxy 43.1 ng/mL
[2022-02-09 11:08] LABS: AST(SGOT) 23 U/L (15-37); Alanine Aminotransfer ALT/SGPT 27 U/L (13-56); Albumin, Serum 3.5 g/dL (3.2-5.0); Alkaline Phosphatase 71 U/L (45-117); Anion Gap 6 (5-15); BUN 19 mg/dL (7-18); Calcium,Total 9.2 mg/dL (8.5-10.1); Chloride 110 mmol/L (98-107); Cholesterol 203 mg/dL (200); EST Glomerular Filtration Rate 66 mL/min (>60); Est Glom Filt Rate - Afr Amer 79 mL/min (>60); Globulin 3.5 g/dL (2.2-4.2); Glucose 113 mg/dL (74-106); High Density Lipoprotein 80 mg/dL; Potassium 3.8 mmol/L (3.5-5.1); Sodium Level 141 mmol/L (136-145); T4 Free Direct 1.07 ng/dL (0.76-1.46); Thyroid Stim Hormone (TSH) 0.92 uIU/mL (0.358-3.74); Triglycerides 69 mg/dL; Very Low Density Lipoprotein 14 mg/dL (5-40)
== END 2022-02-09 23:59 | disposition home or self-care (01) ==
LOC: MFPLAB 08:20
PROVIDERS: PCP Family Medicine; Referring Provider Family Medicine; Visit Provider Family Medicine
DX: E03.9 Hypothyroidism, unspecified (principal); E78.5 Hyperlipidemia, unspecified; M85.80 Other specified disorders of bone density and structure, unspecified site
CPT/HCPCS: 36415; 80053; 80061; 82306; 84439; 84443

== ENCOUNTER → 2022-07-26 | Outpatient (CLI) | payer MEDICARE, BC, SELFPAY ==
[2022-07-26 15:55] LABS: Cholesterol 270 mg/dL (200); High Density Lipoprotein 73 mg/dL; Thyroid Stim Hormone (TSH) 1.78 uIU/mL (0.358-3.74); Triglycerides 136 mg/dL; Very Low Density Lipoprotein 27 mg/dL (5-40)
== END | disposition home or self-care (01) ==
LOC: MFPLAB 12:23
PROVIDERS: PCP Family Medicine; Referring Provider Family Medicine; Visit Provider Family Medicine
DX: E78.5 Hyperlipidemia, unspecified (principal); E03.9 Hypothyroidism, unspecified
CPT/HCPCS: 36415; 80061; 84443

== ENCOUNTER → 2022-10-24 | Outpatient (CLI) | payer MEDICARE, BC, SELFPAY ==
--- NOTE | 2022-10-24 16:27 | BI_ITS ---
MAMMOGRAPHY - BILATERAL SCREENING REASON FOR EXAM: Female, 72 years old. Routine annual screening examination. PERTINENT HISTORY: Aunt with breast cancer. TECHNIQUE: Digital bilateral breast fred (3D mammographic acquisition) in the CC and MLO projections. 2-D mediolateral oblique (MLO) and craniocaudad (CC) views of both breasts were obtained. CAD: Full Field Digital Mammography with Computer Added Detection was performed. COMPARISON: Comparison is made with prior study 11/16/2021 and 11/08/2020. FINDINGS: Breast Composition: There are scattered areas of fibroglandular density. There are no dominant masses or suspicious calcifications. No other significant abnormalities are identified. There has been no significant change since the prior study. BI/SCRN MAMM (CAD)W/FRED BILAT IMPRESSION: Stable bilateral screening mammogram. Yearly follow-up mammogram recommended. (A) ASSESSMENT CATEGORY: BIRADS Category 1: Negative. A letter regarding these results will be sent to the patient by the facility within 30 days. Approximately 10% of breast cancers are not detected by mammography. A normal mammogram should not delay biopsy of a clinically suspicious abnormality. [id number] Electronically Signed: Troy Serrano MD at 9:10 EST ,
== END | disposition home or self-care (01) ==
LOC: OPBI 10-25 07:19
PROVIDERS: PCP Family Medicine; Visit Provider Family Medicine
DX: Z12.31 Encounter for screening mammogram for malignant neoplasm of breast (principal); Z80.3 Family history of malignant neoplasm of breast
CPT/HCPCS: 77063; 77067

== ENCOUNTER → 2022-11-01 | Outpatient (CLI) | payer MEDICARE, BC, SELFPAY ==
[2022-11-01 10:18] LABS: ALB/GLOB Ratio 1.2 RATIO (0.9-2.4); AST(SGOT) 23 U/L (15-37); Alanine Aminotransfer ALT/SGPT 31 U/L (13-56); Albumin, Serum 3.7 g/dL (3.2-5.0); Alkaline Phosphatase 70 U/L (45-117); Anion Gap 6 (5-15); BUN 15 mg/dL (7-18); BUN/Creat Ratio 17.3 RATIO (10-20); Calcium,Total 8.7 mg/dL (8.5-10.1); Chloride 111 mmol/L (98-107); Cholesterol 175 mg/dL (200); Creatinine, Serum 0.86 mg/dL (0.55-1.02); EST Glomerular Filtration Rate 69 mL/min (>60); Est Glom Filt Rate - Afr Amer 83 mL/min (>60); Glucose 107 mg/dL (74-106); High Density Lipoprotein 84 mg/dL; Potassium 4.3 mmol/L (3.5-5.1); Protein, Total 6.7 g/dL (6.4-8.2); Sodium Level 143 mmol/L (136-145); Triglycerides 60 mg/dL; Very Low Density Lipoprotein 12 mg/dL (5-40)
[2022-11-01 10:21] LABS: Vitamin D,25 Hydroxy 33.5 ng/mL
== END | disposition home or self-care (01) ==
LOC: MFPLAB 08:56
PROVIDERS: PCP Family Medicine; Referring Provider Family Medicine; Visit Provider Family Medicine
DX: I10 Essential (primary) hypertension (principal); E78.5 Hyperlipidemia, unspecified; E55.9 Vitamin D deficiency, unspecified
CPT/HCPCS: 36415; 80053; 80061; 82306

== ENCOUNTER → 2023-02-26 | Outpatient (CLI) | payer MEDICARE, BC, SELFPAY ==
--- NOTE | 2023-02-26 11:12 | RAD_ITS ---
STUDY: X-RAY - LUMBOSACRAL SPINE REASON FOR EXAM: Female, 73 years old. DDD TECHNIQUE: 7 view(s) of the lumbosacral spine were obtained. COMPARISON: None FINDINGS: There is straightening of the normal lumbar lordosis. There is no substantial scoliosis. There is normal alignment of the vertebrae. There is diffuse demineralization with multi-level endplate spondylosis. There is multi-level degenerative disc disease with multi-level disc space narrowing. Normal bilateral sacral ala, sacroiliac joints, and visualized sacrum. No instability on the flexion or extension views. Range of motion however is limited RAD/L/S Spine w Bend Min 6 Vw IMPRESSION: Degenerative changes of the spine, as detailed above. No demonstrated fracture or instability Electronically Signed: Dave Pinedo MD at 11:45 EDT ,
[2023-02-26 12:45] LABS: Vitamin D,25 Hydroxy 41.4 ng/mL
[2023-02-26 12:52] LABS: Cholesterol 179 mg/dL (200); High Density Lipoprotein 83 mg/dL; Thyroid Stim Hormone (TSH) 2.04 uIU/mL (0.358-3.74); Triglycerides 69 mg/dL; Very Low Density Lipoprotein 14 mg/dL (5-40)
== END | disposition home or self-care (01) ==
PROVIDERS: PCP Family Medicine; Referring Provider Family Medicine; Visit Provider Family Medicine
DX: M51.36 Other intervertebral disc degeneration, lumbar region (principal); E03.9 Hypothyroidism, unspecified; E55.9 Vitamin D deficiency, unspecified
CPT/HCPCS: 36415; 72114; 80061; 82306; 84443

== ENCOUNTER 2023-04-03 09:00 | Outpatient (RCR) | payer MEDICARE, BC, SELFPAY ==
--- NOTE | 2023-03-08 12:49 | HP.PTEVAL_ITS ---
Patient's Visit Information KARIN CAN is a 73 year old F referred to Physical Therapy by Dr. Jeff Watson MD with a diagnosis of LUMBAR DDD. Date of Evaluation: 03/08/23 Physical Therapist: Nathan Abdullahi PT, Cert MDT, OCS - Visit Plan Frequency: 2x /Week Duration: 4 Weeks Plan: PT INTERVETIONS LUMBAR ROM ,FLEXABLITY LE ,POSTURAL EX'S ,DLS AND MODALTITIES PRN - Subjective This 73 y/o female presents to physical therapy with lumbar radiculopathy . Patient had h/o lumbar surgery laminectomy ~ 20 years. Most recently lumbar pain worse . Patient seen Dr had x-rays- DDD. No medication or pain management . Patient has had h/o epidural injections dur to pain for many years. Aggravating walking/standing, bending /twisting and lifting ,occasional sitting. Alleviating factors Advil ,rest. Denies paresthesia/tingling. Bowel/bladder -. Coughing/sneezing+. Patient pain affects sleeping. Patient pain affects QOL and function .Patient pain affect housework tasks . Patient has had physical therapy in past .Patient is up from [place] which patient returns in April. Patient had cervical fusion ~ 25 years. SOCIAL: . VOCATION: retired. SOCAIL: - Pain Bilateral Back Pain Intensity (Out of 10): 7 Pain Intensity Range: 10 Right Lower Extremity Pain Intensity (Out of 10): 0 Pain Intensity Range: 10 - Objective POSTURE: mild foreword posture. GAIT: ambulates with mild foreword posture antalgic gait. NEURO: denies paresthesia/tingling ,reflexes L3-4,L4-5 ,L5-S1 2/3. PALAPTION: tender LS/SI. ASSYEMTRIES: align. FLEXABILITRY: hamstrings min tight. MMT: quads/hams 4/5 ,hip flexion 4-/5 ,ankle. LUMBAR ROM: flexion mod/severe loss ,extension severe loss pain ,side glides mod loss - Special Tests L/S Slump test left side: Negative L/S Slump test right side: Negative L/S Left Straight Leg Raise: Negative L/S Right Straight Leg Raise: Negative Lumbar Standing: Flexion - Mechanical Response: No effect Lumbar Standing: Flexion - Symptoms During Testing: Increases Lumbar Standing: Flexion - Symptoms After Testing: Worse Lumbar Standing: Extension - Mechanical Response: No effect Lumbar Standing: Extension - Symptoms During Testing: Increases Lumbar Standing: Extension - Symptoms After Testing: Worse Lumbar Standing: Right Side Glides - Mechanical Response: No effect Lumbar Standing: Right Side [place] - Symptoms During Testing: Increases Lumbar Standing: Right Side [place] - Symptoms After Testing: Worse Lumbar Standing: Left Side [place] - Mechanical Response: No effect Lumbar Standing: Left Side [place] - Symptoms During Testing: No effect Lumbar Standing: Left Side [place] - Symptoms After Testing: No effect - Balance/Special Test Scores Oswestry Low Back Score: 28 - Goals Goal 1:: I with HEP for back Goal Time Frame: 4-6 Weeks Goal 2:: Patient to demonstrate 50 % improvement with decrease pain and improved function Goal Time Frame: 4-6 Weeks Goal 3:: Patient to improve lumbar ROM for function of recovery to tie shows. Goal Time Frame: 4-6 Weeks Goal 4:: Patient to improve back oswestry score by 5 points > to improve QOL Goal Time Frame: 4-6 Weeks Goal 5:: Patient be able to stand and/or walk > than 20 mins for housework tasks. Goal Time Frame: 4-6 Weeks - Rehabilitation Potential Physical Therapy Diagnosis: This patient has lumbar pain with stenosis with h/o lumbar surgery with poor ROM ,pain with positioning and motion test worse with walking/standing thus benefit from skilled PT Rehabilitation Potential: Good - Anticipated Interventions Patient/Client Instruction: Educate patient on: Condition, Plan of Care For the Purpose of:: To decrease pain, To increase ROM, To improve muscle performance and motor function, To increase tolerance to activity/condition/position, To improve ability of physical actions for home/community/work/leisure, To improve gait and locomotor functions, To improve health of tissue, To decrease soft tissue restriction, To increase flexibility/ROM, To prevent re-injury Therapeutic Exercise to Include: Strength training, Endurance training, Body mechanics, Postural training, Flexibilty training, Dynamic Lumbar Stabilization For the Purpose of:: To decrease pain, To increase ROM, To improve muscle performance and motor function, To increase tolerance to activity/condition/position, To improve ability of physical actions for home/community/work/leisure, To improve health of tissue, To decrease soft tissue restriction, To increase flexibility/ROM, To improve endurance, To reduce risk of recurrence TENS: Yes IF ES: Yes Thermo therapy (hot pack): Yes Ultrasound (thermal/non thermal): Yes For the Purpose of:: To decrease pain, To increase ROM, To improve nutrient delivery to tissue, To increase oxygenation perfusion, To improve health of tissue, To decrease soft tissue restriction Thank you for the opportunity to evaluate your patient. For Medicare and Medicare HMO plans, please review the plan of care and approve it. It will need to be FAXED BACK to us at [phone] for Medicare purposes. For Medicare only, by signing this I certify the plan of care. Please let me know if there are questions or concerns regarding this plan of care. Physician Signature: Date:
--- NOTE | 2023-07-18 12:15 | HP.PT.NRP ---
Patient Information Patient Information: KARIN CAN was seen in my office for initial evaluation on 03/08/23. The following Plan of Care was established for this patient: POC Established Initial Frequency: 2x /Week Initial Duration: 4 Weeks Anticipated Interventions Patient/Client Instruction: Educate patient on: Condition and Plan of Care For the Purpose of:: To decrease pain, To increase ROM, To improve muscle performance and motor function, To increase tolerance to activity/condition/position, To improve ability of physical actions for home/community/work/leisure, To improve gait and locomotor functions, To improve health of tissue, To decrease soft tissue restriction, To increase flexibility/ROM and To prevent re-injury Therapeutic Exercise to Include: Strength training, Endurance training, Body mechanics, Postural training, Flexibilty training and Dynamic Lumbar Stabilization For the Purpose of:: To decrease pain, To increase ROM, To improve muscle performance and motor function, To increase tolerance to activity/condition/position, To improve ability of physical actions for home/community/work/leisure, To improve health of tissue, To decrease soft tissue restriction, To increase flexibility/ROM, To improve endurance and To reduce risk of recurrence TENS: Yes IF ES: Yes Thermo therapy (hot pack): Yes Ultrasound (thermal/non thermal): Yes For the Purpose of:: To decrease pain, To increase ROM, To improve nutrient delivery to tissue, To increase oxygenation perfusion, To improve health of tissue and To decrease soft tissue restriction Last Seen Last Seen: This patient was last seen in our office . Pertinent comments regarding their Physical therapy will appear below: Patient was seen for PT for lumbar pain for 8 visits for DLS AND POSTURAL EX'S ,doing well thus is d/c At this point I will be discontinuing this patient from physical therapy. I would be happy to see this patient again in the future if found appropriate by the physician. Thank you! Nathan Abdullahi, PT, Cert MDT, OCS Balance/Gait/Functional tests Balance/Special Test Scores Oswestry Low Back Score: 3
== END 2023-04-03 19:00 | disposition home or self-care (01) ==
LOC: PT 09:00
PROVIDERS: PCP Family Medicine; Referring Provider Family Medicine; Visit Provider Family Medicine
DX: M51.36 Other intervertebral disc degeneration, lumbar region (principal)
CPT/HCPCS: 97110; 97162

== ENCOUNTER → 2023-11-07 | Outpatient (CLI) | payer MEDICARE, BC, SELFPAY ==
[2023-11-07 10:22] LABS: Absolute Lymphocyte Count 1.61 X10^3/uL (0.83-4.51); Absolute Neutrophil Count 2.3 X10^3/uL (2.0-7.7); Basophil# 0.04 X10^3/uL; Basophil% 0.9 % (0-1); Eosinophil# 0.11 X10^3/uL; Eosinophils% 2.5 % (0-5); Hemoglobin 11.3 g/dL (12.0-15.0); Lymphocyte # 1.61 X10^3/ul (0.83-4.51); Lymphocyte % 37.1 % (19-41); Mean Corp Hgb Conc 31.4 g/dL (32-36); Mean Corpuscular Volume 98.9 fL (81-99); Mean Platelet Vol. 10.3 fl (6.2-12.0); Monocyte# 0.31 X10^3/uL; Monocyte% 7.1 % (0-10); NRBC Flagged by Analyzer 0 % (0-5); Neutrophil # 2.26 X10^3/uL (2.7-7.7); Neutrophil % 52.2 % (47-70); Platelet Count 261 K/mm3 (150-450); RBC Distribution Width CV 12.7 % (11.6-14.6); RBC Distribution Width SD 45.9 fl (35.1-43.9); Red Blood Count 3.64 M/mm3 (4.2-5.4); White Blood Count 4.3 K/mm3 (4.4-11.0)
[2023-11-07 10:45] LABS: Vitamin D,25 Hydroxy 58.4 ng/mL
[2023-11-07 10:57] LABS: ALB/GLOB Ratio 1.1 RATIO (0.9-2.4); AST(SGOT) 16 U/L (15-37); Alanine Aminotransfer ALT/SGPT 15 U/L (13-56); Albumin, Serum 3.5 g/dL (3.2-5.0); Alkaline Phosphatase 59 U/L (45-117); Anion Gap 4 (5-15); BUN 12 mg/dL (7-18); BUN/Creat Ratio 15.3 RATIO (10-20); Calcium,Total 8.9 mg/dL (8.5-10.1); Chloride 112 mmol/L (98-107); Cholesterol 150 mg/dL (200); Creatinine, Serum 0.78 mg/dL (0.55-1.02); EST Glomerular Filtration Rate 77 mL/min (>60); Est Glom Filt Rate - Afr Amer 93 mL/min (>60); Globulin 3.1 g/dL (2.2-4.2); Glucose 107 mg/dL (74-106); High Density Lipoprotein 73 mg/dL; Potassium 4.2 mmol/L (3.5-5.1); Protein, Total 6.6 g/dL (6.4-8.2); Sodium Level 142 mmol/L (136-145); Thyroid Stim Hormone (TSH) 0.43 uIU/mL (0.358-3.74); Triglycerides 87 mg/dL; Very Low Density Lipoprotein 17 mg/dL (5-40)
== END | disposition home or self-care (01) ==
LOC: MFPLAB 08:50
PROVIDERS: PCP Family Medicine; Visit Provider Family Medicine
DX: Z00.00 Encounter for general adult medical examination without abnormal findings (principal); Z13.6 Encounter for screening for cardiovascular disorders; I10 Essential (primary) hypertension; E55.9 Vitamin D deficiency, unspecified
CPT/HCPCS: 36415; 80053; 80061; 82306; 84443; 85025

== ENCOUNTER → 2023-11-08 | Outpatient (CLI) | payer MEDICARE, BC, SELFPAY ==
--- NOTE | 2023-11-08 09:06 | BI_ITS ---
MAMMOGRAPHY - BILATERAL SCREENING REASON FOR EXAM: Female, 73 years old. Routine annual screening examination. PERTINENT HISTORY: Aunt with breast cancer. TECHNIQUE: Digital bilateral breast fred (3D mammographic acquisition) in the CC and MLO projections. 2-D mediolateral oblique (MLO) and craniocaudad (CC) views of both breasts were obtained. CAD: Full Field Digital Mammography with Computer Added Detection was performed. COMPARISON: Comparison is made with prior study dated October 24, 2022 and November 16, 2021. FINDINGS: Breast Composition: There are scattered areas of fibroglandular density. There are no dominant masses or suspicious calcifications. No other significant abnormalities are identified. There has been no significant change since the prior study. BI/SCRN MAMM (CAD)W/FRED BILAT IMPRESSION: Stable bilateral screening mammogram. Yearly follow-up mammogram recommended. (A) ASSESSMENT CATEGORY: BIRADS Category 1: Negative. A letter regarding these results will be sent to the patient by the facility within 30 days. Approximately 10% of breast cancers are not detected by mammography. A normal mammogram should not delay biopsy of a clinically suspicious abnormality. [id number] Electronically Signed: Troy Serrano MD at 10:01 EST ,
== END | disposition home or self-care (01) ==
LOC: OPBI 09:05
PROVIDERS: PCP Family Medicine; Referring Provider Family Medicine; Visit Provider Family Medicine
DX: Z12.31 Encounter for screening mammogram for malignant neoplasm of breast (principal)
CPT/HCPCS: 77063; 77067

== ENCOUNTER → 2024-02-20 | Outpatient (CLI) | payer MEDICARE, BC, SELFPAY ==
--- NOTE | 2024-02-20 12:19 | BD_ITS ---
STUDY: DUAL ENERGY X-RAY ABSORPTIOMETRY / DXA REASON FOR EXAM: Female, 74 years old. Z780 TECHNIQUE: Bone Mineral Density (BMD) measurements of lumbar spine and bilateral hips were obtained. COMPARISON: Comparison is made with prior study November 16, 2021. FINDINGS: Lumbar Spine (L1-L4): g/cm2 (1.099) / T-score (0.7) / Z-score (2.9) Findings are suggestive of normal bone density with a low fracture risk. Left Femur Total: g/cm2 (0.728) / T-score (-1.8) / Z-score (-0.1) Left Femoral Neck: g/cm2 (0.653) / T-score (-1.8) / Z-score (0.1) Right Femur Total: g/cm2 (0.660) / T-score (-2.3) / Z-score (-0.7) Right Femoral Neck: g/cm2 (0.561) / T-score (-2.6) / Z-score (-0.7) The T-Scores on the most recent prior examination were: Lumbar Spine (L1-L4): There has been improvement of bone density since the previous examination. Left Femur Total: which represents a worsening of 6.8%. Right Femur Total: which represents a worsening of 7.8%. BD/Dexa Bone Density Study IMPRESSION: The patient is considered osteoporotic as outlined below according to World Jorge Organization (WHO) criteria with a high fracture risk. There has been worsening of bone density since the previous examination. Reference Information: The T-score is the number of standard deviations above or below the standard which is normal for young adults at their peak bone mineral density. The World Health Organization (WHO) interprets the T-scores as follows: Above -1 Normal bone density Between -1 and -2.5 Osteopenia Equal to / or below -2.5 Osteoporosis As a practical clinical guideline, osteopenia may be graded as follows: Mild -1 through -1.5 Moderate -1.6 through -2.0 Severe -2.1 through -2.4 The Z-score is the number of standard deviations above or below age-matched controls. A Z-score of less than -1.5 would be considered abnormal. References: 1. NIH Osteoporosis and Related Bone Diseases www osteo.org 2. International Society for Clinical Densitometry www iscd.org 3. National Osteoporosis Foundation www nof.org Electronically Signed: Troy Serrano MD at 19:17 EDT ,
== END | disposition home or self-care (01) ==
LOC: OPBD 12:10
PROVIDERS: PCP Family Medicine; Referring Provider Family Medicine; Visit Provider Family Medicine
DX: Z00.00 Encounter for general adult medical examination without abnormal findings (principal); Z78.0 Asymptomatic menopausal state
CPT/HCPCS: 77080

== ENCOUNTER → 2024-02-27 | Outpatient (CLI) | payer MEDICARE, BC, SELFPAY ==
[2024-02-27 10:20] LABS: Ionized Calcium 4.93 mg/dL (4.36-5.20)
[2024-02-27 10:37] LABS: PTHIN 34.2 pg/mL (18.4-80.1)
[2024-02-27 10:41] LABS: Vitamin D,25 Hydroxy 55.3 ng/mL
[2024-02-27 10:47] LABS: Anion Gap 2 (5-15); BUN 17 mg/dL (7-18); Calcium,Total 8.7 mg/dL (8.5-10.1); Chloride 113 mmol/L (98-107); Creatinine, Serum 0.85 mg/dL (0.55-1.02); EST Glomerular Filtration Rate 70 mL/min (>60); Est Glom Filt Rate - Afr Amer 85 mL/min (>60); Glucose 111 mg/dL (74-106); Magnesium 2.1 mg/dL (1.6-2.6); Phosphorus 3.6 mg/dL (2.5-4.9); Sodium Level 144 mmol/L (136-145)
== END | disposition home or self-care (01) ==
LOC: MFPLAB 09:10
PROVIDERS: PCP Family Medicine; Visit Provider Family Medicine
DX: I10 Essential (primary) hypertension (principal); E55.9 Vitamin D deficiency, unspecified
CPT/HCPCS: 36415; 80048; 82306; 82330; 83735; 83970; 84100

== ENCOUNTER → 2024-05-05 | Outpatient (CLI) | payer MEDICARE, BC, SELFPAY ==
[2024-05-05 11:53] LABS: ALB/GLOB Ratio 1.1 RATIO (0.9-2.4); AST(SGOT) 18 U/L (15-37); Alanine Aminotransfer ALT/SGPT 23 U/L (13-56); Albumin, Serum 3.7 g/dL (3.2-5.0); Alkaline Phosphatase 61 U/L (45-117); Anion Gap 6 (5-15); BUN 23 mg/dL (7-18); BUN/Creat Ratio 27.3 RATIO (10-20); Calcium,Total 8.8 mg/dL (8.5-10.1); Chloride 110 mmol/L (98-107); Cholesterol 178 mg/dL (200); Creatinine, Serum 0.84 mg/dL (0.55-1.02); EST Glomerular Filtration Rate 71 mL/min (>60); Est Glom Filt Rate - Afr Amer 85 mL/min (>60); Globulin 3.3 g/dL (2.2-4.2); Glucose 118 mg/dL (74-106); High Density Lipoprotein 78 mg/dL; Potassium 4.3 mmol/L (3.5-5.1); Sodium Level 142 mmol/L (136-145); Triglycerides 71 mg/dL; Very Low Density Lipoprotein 14 mg/dL (5-40)
== END | disposition home or self-care (01) ==
LOC: MFPLAB 08:34
PROVIDERS: PCP Family Medicine; Visit Provider Family Medicine
DX: E03.9 Hypothyroidism, unspecified (principal)
CPT/HCPCS: 36415; 80053; 80061

== ENCOUNTER → 2024-06-09 | Outpatient (CLI) | payer MEDICARE, BC, SELFPAY ==
--- NOTE | 2024-06-09 09:52 | RAD_ITS ---
HISTORY: Cervical disc disorder with myelopathy, unspecified cervical. TECHNIQUE: XR Spine Cervical 4 or 5 Views. COMPARISON: MR 02/22/2005. FINDINGS: VERTEBRAE: Vertebral body heights maintained. 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 ALIGNMENT: No significant anterior or posterior subluxation. Preservation of the cervical lordosis. INTERVERTEBRAL DISCS: Degenerative endplate changes with mild vertebral disc space narrowing of C3-4, C4-5, and C5-6. At least moderate bilateral foraminal narrowing at these levels. SOFT TISSUES: No significant prevertebral soft tissue swelling. RAD/Cerv Spine 4 or 5 Views IMPRESSION: No acute fracture or dislocation identified in the cervical spine. Multilevel degenerative change. Electronically Signed: Gema Yañez MD at 9:50 EDT ,
--- NOTE | 2024-06-09 09:52 | RAD_ITS ---
STUDY: X-RAY - LEFT SHOULDER REASON FOR EXAM: Female, 74 years old. Pain. TECHNIQUE: 4 views of the left shoulder. COMPARISON: None. FINDINGS: Normal glenohumeral articulation. There is mild hypertrophic acromioclavicular arthrosis. Normal acromion. There is calcific density adjacent to the greater tuberosity of the humeral head, compatible with calcific tendinitis of the rotator cuff. Intact humeral head and visualized proximal humerus. The soft tissue structures are unremarkable. There is no demonstrated fracture. Normal visualized pulmonary apex. RAD/Shoulder min 2 Views IMPRESSION: Mild hypertrophic acromioclavicular arthrosis. Calcific tendinitis of the rotator cuff. Electronically Signed: Boris Roa MD at 8:20 EDT ,
== END | disposition home or self-care (01) ==
LOC: MTRAD 09:50
PROVIDERS: PCP Family Medicine; Referring Provider Family Medicine; Visit Provider Family Medicine
DX: M50.00 Cervical disc disorder with myelopathy, unspecified cervical region (principal); M25.512 Pain in left shoulder
CPT/HCPCS: 72050; 73030

== ENCOUNTER 2024-07-03 11:00 | Outpatient (RCR) | payer MEDICARE, BC, SELFPAY ==
--- NOTE | 2024-06-17 14:28 | HP.PTEVAL_ITS ---
Patient's Visit Information Visit Information Visit Information: KARIN CAN is a 74 year old F referred to Physical Therapy by Dr. Prem Watson MD with a diagnosis of Shoulder Pain. Date of Evaluation: 06/17/24 Physical Therapist: Anne Marion DPT Visit Plan Frequency: 2x /Week Duration: 4 Weeks Plan: Focus on posture- scapular strength/stabilization HEP Given IE: Posture, scapular retractions, bilateral ER with OTB, pec corner stretch Subjective Subjective: Left shoulder pain- 3-4 weeks ago she was in [place] and she work up with pain down her left arm and chest pain from 1-5 am- made her go the ER- EKG, x-ray and blood work and cleared- she has had cervical spine surgery 25 years ago. They thought it might be her neck- she saw Dr. Watson- they took x- rays of her cervical spine and shoulder which showed degeneration and sent her to PT. She is still having the symptoms that come and go. Agg: lifting or bringing it back behind her or laying on it Worst: 5-6/10. Best: 0/10 Eases: Aleve and Tylenol. The pain is located in the shoulder on the top and radiates all the way to the fingers and into her left breast. Right hand dominate. Describes the pain as achy. Exercise- she walks a lot- 10,000 steps a day- sidewalks- sometimes [place] so some hills. Sleep: disturbed- side sleeper if she rolls over on it. No ASHBY, blurred vision or dizziness. She does have some neck pain- degeneration. Before she went to into the ER she did feel like she had decreased intermediate teacher strength but not since then. No injections but she does take Celebrex daily. PMHx: cervical 27 years old, low back surgery 20 years ago, thyroidectomy, HTN , prediabetic Meds: Celebrex, Synthroid, Amlodopine, Static, Losartin Objective Objective: Posture: forward head, rounded shoulders- can correct with verbal cues but does not maintain Gait: good arm swing and trunk rotation Palpation: tender along bicipital groove, upper trap, levator, infraspinatus ROM: Cervical Spine: WFL in all planes, Shoulder: AROM: flexion: 160 degrees, Abd: 90 degrees, IR: behind the back equal, ER: 50 degrees, PROM: WFL in planes. Elbow: WNL Strength: Scap: fair minus, Shoulder:4-/5 throughout, Elbow: 4+/5, Special Needs Caregiver: good Special Tests L Shoulder Empty Can - SS: Positive L Shoulder Belly Press - SupScap: Positive L Shoulder Neer - Impingement: Positive L Shoulder Grewal Anthony - Impingement: Positive Balance/Special Test Scores Quick DASH Score: 29.5450 Goals Goal 1:: Patient will be I with HEP and progression Goal Time Frame: 4-6 Weeks Goal 2:: Patient will maintain proper posture t/o tx session to demo increased scap s/s Goal Time Frame: 4-6 Weeks Goal 3:: Patient will report sleeping through the night for 1 week Goal Time Frame: 4-6 Weeks Goal 4:: Patient will report 80% improvement Goal Time Frame: 4-6 Weeks Rehabilitation Potential Physical Therapy Diagnosis: Patient presents with decreased pain free ROM, scapular strength/stabilization and muscular endurance leading to impingement to poor posture and increased pain with ADL's. Rehabilitation Potential: Fair Anticipated Interventions Therapeutic Exercise to Include: Strength training, Endurance training, Balance training, Coordination, Agility training, Body mechanics, Postural training, Flexibilty training, Neuromotor development, Passive ROM and Scapular Strength/Stabilization For the Purpose of:: To improve muscle performance and motor function TENS: Yes Cryotherapy (ice pack, ice massage): Yes Thermo therapy (hot pack): Yes Ultrasound (thermal/non thermal): Yes Text: Thank you for the opportunity to evaluate your patient. For Medicare and Medicare HMO plans, please review the plan of care and approve it. It will need to be FAXED BACK to us at [phone] for Medicare purposes. For Medicare only, by signing this I certify the plan of care. Please let me know if there are questions or concerns regarding this plan of care. Physician Signature: Date:
== END 2024-07-03 19:00 | disposition home or self-care (01) ==
LOC: PT 11:00
PROVIDERS: PCP Family Medicine; Referring Provider Family Medicine; Visit Provider Family Medicine
DX: M25.519 Pain in unspecified shoulder (principal)
CPT/HCPCS: 97110; 97162

== ENCOUNTER → 2024-11-10 | Outpatient (CLI) | payer MEDICARE, BC, SELFPAY ==
--- NOTE | 2024-11-10 10:44 | BI_ITS ---
MAMMOGRAPHY - BILATERAL SCREENING 3-D TOMOSYNTHESIS REASON FOR EXAM: Female, 74 years old. screening PERTINENT HISTORY: No significant family history. TECHNIQUE: 2-D mammograms and 3-D Tomosynthesis of the breast (s) were performed. CAD was performed. COMPARISON: 11/08/2023 FINDINGS: The breast composition is composed of scattered fibroglandular density. Scattered benign calcifications are seen. No dense spiculated masses or suspicious microcalcifications are identified. No architectural distortion is identified. There is no skin thickening or retraction. There has been no significant change since the prior study. BI/SCRN MAMM (CAD)W/FRED BILAT IMPRESSION: No mammographic signs of malignancy. Routine yearly mammograms recommended. ASSESSMENT CATEGORY: BIRADS Category 1: Negative. A letter regarding these results will be sent to the patient by the facility within 30 days. FOLLOW UP RECOMMENDATION: Yearly follow up mammogram recommended. (A) Approximately 10% of breast cancers are not detected by mammography. A normal mammogram should not delay biopsy of a clinically suspicious abnormality. Electronically Signed: Gaudencio Jacques MD at 17:49 EST ,
== END | disposition home or self-care (01) ==
LOC: OPBI 10:42
PROVIDERS: PCP Family Medicine; Referring Provider Family Medicine; Visit Provider Family Medicine
DX: Z12.31 Encounter for screening mammogram for malignant neoplasm of breast (principal)
CPT/HCPCS: 77063; 77067

== ENCOUNTER → 2025-02-16 | Outpatient (CLI) | payer MEDICARE, BC, SELFPAY ==
[2025-02-16 10:39] LABS: Hematocrit 36.7 % (37-47); Mean Corp Hgb Conc 32.7 g/dL (32-36); Mean Corpuscular Volume 94.8 fL (81-99); Mean Platelet Vol. 10.3 fl (6.2-12.0); Platelet Count 268 K/mm3 (150-450); RBC Distribution Width CV 13.6 % (11.6-14.6); Red Blood Count 3.87 M/mm3 (4.2-5.4); White Blood Count 4.2 K/mm3 (4.4-11.0)
[2025-02-16 10:50] LABS: PTHIN 27 pg/mL (11-61)
[2025-02-16 12:43] LABS: ALB/GLOB Ratio 1.5 RATIO (0.9-2.4); AST(SGOT) 19 U/L (<=31); Alanine Aminotransfer ALT/SGPT 12 U/L (<=34); Alkaline Phosphatase 55 U/L (35-104); Anion Gap 10 (5-15); BUN 17 mg/dL (4-19); BUN/Creat Ratio 18.9 RATIO (10-20); Calcium,Total 9.1 mg/dL (7.6-11.0); Carbon Dioxide 23.3 mmol/L (21.0-32.0); Chloride 108 mmol/L (98-108); Cholesterol 175 mg/dL (<=200); Creatinine, Serum 0.89 mg/dL (0.70-1.20); EST Glomerular Filtration Rate 68 (>60); Globulin 2.6 g/dL (2.2-4.2); Glucose 107 mg/dL (70-99); High Density Lipoprotein 80 mg/dL; Low Density Lipoprotein Calc. 85 mg/dL; Potassium 4.3 mmol/L (3.3-5.1); Protein, Total 6.6 g/dL (5.9-8.4); Sodium Level 141 mmol/L (133-145); Total Bilirubin 0.55 mg/dL (0.00-1.30); Triglycerides 50 mg/dL; Very Low Density Lipoprotein 10 mg/dL (5-40); Vitamin D,25 Hydroxy 72.5 ng/mL (30-100); cholesterol:hdl ratio screen 2.18
== END | disposition home or self-care (01) ==
LOC: MTLAB 08:48
PROVIDERS: PCP Family Medicine; Referring Provider Family Medicine; Visit Provider Family Medicine
DX: I10 Essential (primary) hypertension (principal); E03.9 Hypothyroidism, unspecified; M81.0 Age-related osteoporosis without current pathological fracture
CPT/HCPCS: 80053; 80061; 82306; 83970; 84443; 85027

== ENCOUNTER → 2025-08-18 | Outpatient (CLI) | payer MEDICARE, BC, SELFPAY ==
[2025-08-18 18:41] LABS: Anion Gap 10 (5-15); BUN 22 mg/dL (4-19); BUN/Creat Ratio 22.0 RATIO (10-20); Calcium,Total 9.3 mg/dL (7.6-11.0); Carbon Dioxide 23.8 mmol/L (21.0-32.0); Chloride 108 mmol/L (98-108); Glucose 114 mg/dL (70-99); Potassium 4.5 mmol/L (3.3-5.1); Vitamin D,25 Hydroxy 72.8 ng/mL (30-100)
== END | disposition home or self-care (01) ==
LOC: MFPLAB 13:46
PROVIDERS: PCP Family Medicine; Referring Provider Family Medicine; Visit Provider Family Medicine
DX: E03.9 Hypothyroidism, unspecified (principal); E55.9 Vitamin D deficiency, unspecified
CPT/HCPCS: 36415; 80048; 82306; 84439; 84443